=== PATIENT | male | born 1970 | race Caucasian/White ===

== ENCOUNTER 2020-05-17 11:48 | Emergency (ER) | payer OTHER, BC ==
[~2020-05-17] VITALS: Ht 175.3 cm; Wt 81.7 kg
--- OUTSIDE RECORDS SUMMARY | ~2020-05-17 | XMS | Clinical Summary ---
Demographics + + + | Address | [address] | | | [place] [address] | + + + | Home Phone | | + + + | Preferred Language | Unknown | + + + | Marital Status | | + + + | Anglican Affiliation | Unknown | + + + | Race | Unknown | + + + | Ethnic Group | Unknown | + + + Author + + + | Author | [facility] | | | and Abdulazizana | + + + | Organization | [facility] | | | and Abdulazizana | + + + | Address | Unknown | + + + | Phone | Unavailable | + + + Support + + +---------+ + | Name | Relationship | Address | Phone | + + +---------+ + | Monika Lewis | ECON | Unknown | | + + +---------+ + Care Team Providers + +------+ + | Care Luncheonette Operator Name | Role | Phone | + +------+ + PCP | Unavailable | + +------+ + Allergies Not on File Medications Not on file Active Problems Not on file Social History + +-------+ +--------+------+ | Tobacco Use | Types | Packs/Day | Years | Date | | | | | Used | | + +-------+ +--------+------+ | Never Assessed | | | | | + +-------+ +--------+------+ + + + | Sex Assigned at | Date Recorded | | | | + + + | Not on file | | + + + Last Filed Vital Signs Not on file Plan of Treatment + + +-------+ + | Health Maintenance | Due Date | Last | Comments | | | | Done | | + + +-------+ + | Vaccine: | | | | | Dtap/Tdap/Td (1 - | 9 | | | | Tdap) | | | | + + +-------+ + | Vaccine: Influenza | | | | | (#1) | 0 | | | + + +-------+ + Results Not on filefrom Last 3 Months"
--- OUTSIDE RECORDS SUMMARY | ~2020-05-17 | XMS | Encounter Summary ---
Demographics + + + | Address | [address] | | | [place] [address] | + + + | Home Phone | | + + + | Preferred Language | Unknown | + + + | Marital Status | | + + + | Advent Affiliation | Unknown | + + + | Race | Unknown | + + + | Ethnic Group | Unknown | + + + Author + + + | Author | [facility] | | | and Abdulazizana | + + + | Organization | [facility] | | | and Abdulazizana | [...] Team Providers + +------+ + | Care Milk Drying Machine Operator Name | Role | Phone | + +------+ + PCP | Unavailable | + +------+ + Encounter Details +--------+ + + + + | Date | Type | Department | Care Team | Description | +--------+ + + + + | 03/10/ | Hospital | [facility] | | | | 1996 | Encounter | MED CTR XRAY [address] | | | | | [place] | | | | | | [place] [id number] | | | | | | [phone] | | | +--------+ + + + + Social History + +-------+ +--------+------+ | Tobacco [...] on file | | + + + documented as of this encounter Plan of Treatment Not on filedocumented as of this encounter Visit Diagnoses Not on filedocumented in this encounter"
[~2020-05-17 11:48] MED LIST: AUGMENTIN 875-1 EACH PO; CETIRIZINE HCL10 MG PO; CYCLOBENZAPRINE10 MG PO; NORCO 5-325 TA1 EACH PO; PSEUDOEPHEDRINE60 MG PO; TESTOSTERO200 MG/1 M IM
[2020-05-17] MEDS ORDERED: OMEPRAZOLE20 M1 PO (13:35)
== END 2020-05-17 13:35 | disposition home or self-care (01) ==
LOC: ED 11:48
DX: S83.91XA Sprain of unspecified site of right knee, initial encounter (principal); X50.1XXA Overexertion from prolonged static or awkward postures, initial encounter
CPT/HCPCS: 73560; 99283-25

== ENCOUNTER 2021-03-12 12:02 | Emergency (ER) | payer OTHER ==
[~2021-03-12] VITALS: Ht 175.3 cm; Wt 81.7 kg
[~2021-03-12 12:02] MED LIST changes: +OMEPRAZOLE20 M1 PO
--- OUTSIDE RECORDS SUMMARY | 2021-03-12 12:06 | XMS ---
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 Jim has no Care Guidelines for this patient. Da VISIT COUNT (12 MO.) 2 HERMELINDA Lee TOTAL 2 NOTE: Visits indicate total known visits. [place] [place]12 [place] 03/12/2021 12:03 HERMELINDA [place] [place] TYPE: Emergency COMPLAINT: - SKIN RASH, FACE SWOLLEN, BODY FEELS HOT 05/17/2020 11:[address] [facility] [place] TYPE: Emergency COMPLAINT: - R KNEE INJURY DIAGNOSES: - Pain in right knee - Sprain of unspecified site of right knee, initial encounter - Overexertion from prolonged static or awkward postures, initial encounter INPATIENT VISIT TRACKING (12 MO.) No inpatient visits to display in this time frame [email or web address]
[2021-03-12] MEDS ORDERED: PREDNISONE20 MG PO (12:46)
== END 2021-03-12 13:05 | disposition home or self-care (01) ==
LOC: ED 12:02
DX: L25.9 Unspecified contact dermatitis, unspecified cause (principal); Z79.899 Other long term (current) drug therapy
CPT/HCPCS: 99282

== ENCOUNTER 2021-12-18 11:23 | Emergency (ER) | payer OTHER ==
[~2021-12-18] VITALS: Ht 175.3 cm; Wt 81.7 kg
[~2021-12-18 11:23] MED LIST changes: +PREDNISONE20 MG PO
--- OUTSIDE RECORDS SUMMARY | 2021-12-18 11:26 | XMS ---
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 Jim has no Care Guidelines for this patient. Da VISIT COUNT (12 MO.) [address] [facility] Y[place] 2 HERMELINDA Lee TOTAL 3 NOTE: Visits indicate total known visits. [place] [place] (12 MO.) 12/18/2021 11:24 HERMELINDA Tavarez [place] TYPE: Emergency COMPLAINT: - HEAD INJURY 04/14/2021 20:09 [facility] TYPE: Emergency DIAGNOSES: - Near Syncope - Fatigue - light headed - Syncope and collapse - Dizziness and giddiness 03/12/2021 12:03 HERMELINDA [facility] TYPE: Emergency COMPLAINT: - SKIN RASH, FACE SWOLLEN, BODY FEELS HOT DIAGNOSES: - Other senior living (current) drug therapy - Rash and other nonspecific skin eruption - Unspecified contact dermatitis, unspecified cause INPATIENT VISIT TRACKING (12 MO.) No inpatient visits to display in this time frame [email or web address]
== END 2021-12-18 13:14 | disposition home or self-care (01) ==
LOC: ED 11:23
DX: S06.0X9A Concussion with loss of consciousness of unspecified duration, initial encounter (principal); W22.8XXA Striking against or struck by other objects, initial encounter; Z79.52 Long term (current) use of systemic steroids; Z79.899 Other long term (current) drug therapy
CPT/HCPCS: 70450; 99283-25

== ENCOUNTER 2023-07-24 08:45 | Day surgery (SDC) | payer OTHER ==
[~2023-07-24] VITALS: Ht 177.8 cm; Wt 89.4 kg
[~2023-07-24 08:45] MED LIST changes: +ALEVE220 MG PO; +BENADRYL25 MG PO; +PROTONIX40 MG PO; +SILDENAFIL20 MG PO; +VITAMIN D325 MCG PO
[2023-07-24 09:03] VITALS: BP 132/90
--- NOTE | 2023-07-24 10:47 | NUR ---
07/24/23 Deshawn7 Dorothea Gomez 1038 PT TO PACU ALERT AND AWAKE DENIES PAIN AND NAUSEA.
[2023-07-24 11:15] VITALS: BP 121/85
--- NOTE | 2023-07-25 06:57 | OR ---
[facility] [address] [place], [place] [address] Signed DATE OF OPERATION: 07/24/2023 SURGEON: El Vallejo MD PREOPERATIVE DIAGNOSES: 1. Gastroesophageal reflux disease. 2. Chews snuff on a daily basis. 3. Aleve p.o. b.i.d. 4. Screening colonoscopy. POSTOPERATIVE DIAGNOSES: 1. Mild diffuse punctate hemorrhagic gastritis. 2. Hot biopsy of ileocecal valve. 3. Moderate left-sided diverticulosis. 4. 6 mm polyp at 5 cm in rectum (snare). PROCEDURES: 1. EGD with CLOtest and biopsies of the antrum. 2. Colonoscopy with snare polypectomy and hot biopsy. ESTIMATED BLOOD LOSS: None. INDICATIONS: So is a 53-year-old gentleman, asked to see me for both upper and lower endoscopy. He feels like his acid reflux was getting worse. He said Prilosec did not seem to help. However, the Protonix seems to be much better. He said once the Protonix kicked in the hiccups went away. He still chews snuff on a daily basis. He also uses Aleve once or twice a day for his shoulder injury. He said he has never had an upper endoscopy. In addition, he has never had a screening colonoscopy. He has no lower GI complaints. There is no family history of colon cancer or polyps. In the office, I gave him pamphlets on both upper and lower endoscopy. We looked at those together. He understands the nature of the test. There is risk including, but not limited to gas bloating, crampy abdominal pain, bleeding, perforation requiring surgery, and missed diagnosis. We also reviewed the written instructions for the bowel prep line by line. He also understands the need for IV conscious sedation. He had expressed understanding and wished to proceed. DESCRIPTION OF PROCEDURE: So was taken into our endoscopy suite and placed in the supine semi-recumbent Electronically Signed By: EL VALLEJO MD 07/25/23 0657 PATIENT NAME: SO CELIS OPERATIVE REPORT DATE OF : 70 REPORT #: [id number] PHYSICIAN: EL VALLEJO MD PCP: TERRY INTERIANO PAC REPORT IS CONFIDENTIAL AND NOT TO BE RELEASED WITHOUT AUTHORIZATION [facility] [address] [place], [place] [address] Signed position. The posterior oropharynx was anesthetized with lidocaine spray. A bite block was utilized for the case. He was given a total of 8 mg of Versed and 150 mcg of fentanyl to cover both cases. The adult gastroscope was introduced and advanced out into the third portion of the duodenum without difficulty. The duodenum and pyloric channel were unremarkable. In the stomach, he had some very mild diffuse punctate hemorrhagic gastritis. There were no ulcerations. We took a biopsy of the antrum for CLOtest as well as pathologic review. Upon retroflexion of the scope, really cannot appreciate an obvious hiatal hernia. The scope was withdrawn up through the area of the GE junction, which was compliant without stricture. There were no gastric or esophageal varices. Very little irritation around the Z-line. There was no Farmer's mucosa. No distal esophagitis. The upper and middle esophagus were unremarkable. After this, the gas was suctioned out the gastroscope removed. So tolerated his upper endoscopy quite well. So was rotated into the left lateral decubitus position. He was maintained on IV sedation with Versed and fentanyl. A digital rectal exam was performed. There were no external hemorrhoids. He had good sphincter tone. There were no masses. The adult colonoscope had been introduced and advanced under direct visualization of the camera up into the cecum itself. He had a good prep. We could easily see the appendiceal orifice and the ileocecal valve. On the corner of the ileocecal valve, there was a little bit of a bump and we decided to go ahead and biopsied and destroyed completely with the help of hot biopsy forceps. Almost routinely these proved to be unremarkable. The scope was then slowly withdrawn. We had taken several pictures throughout for photodocumentation. He does have left-sided diverticula. They are moderate in size, few in number and scattered about. In the rectum, he had just a small 6 mm polyp just above the anal canal. We divided it with the help of snare and suctioned through our scope and caught it in the canister. We can see this area on retroflexion of the scope along with some very minimal internal hemorrhoid columns. After this, the gas was suctioned out and the colonoscope removed. So tolerated procedure quite well. RECOMMENDATIONS: I will see So back in my office in 7 to 14 days to review his results. He also told me his father of a brain aneurysm. He might review that with his primary care provider for screening of his abdominal aorta. El Vallejo MD ALB/MODL Electronically Signed By: EL VALLEJO MD 07/25/23 0657 PATIENT NAME: SO CELIS OPERATIVE REPORT DATE OF : 70 REPORT #: [id number] PHYSICIAN: EL VALLEJO MD PCP: TERRY INTERIANO PAC REPORT IS CONFIDENTIAL AND NOT TO BE RELEASED WITHOUT AUTHORIZATION [facility] [address] [place] [address] E[place] [address] Signed /[id number] cc: MD Dr. Namrata Redding Copies: EL VALLEJO MD ~ Electronically Signed By: EL VALLEJO MD 07/25/23 0657 PATIENT NAME: SO CELIS OPERATIVE REPORT DATE OF : 70 REPORT #: [id number] PHYSICIAN: EL VALLEJO MD PCP: TERRY INTERIANO PAC REPORT IS CONFIDENTIAL AND NOT TO BE RELEASED WITHOUT AUTHORIZATION
--- NOTE | 2023-07-29 11:04 | PATH ---
[facility] [address] [place], [place] [address] Signed SPECIMEN(S): A ANTRUM/PYLORUS BIOPSY SPECIMEN(S): B RECTAL POLYP AT 5 CM SPECIMEN(S): C ILEOCECAL VALVE BIOPSY SPECIMEN SOURCE: A. ANTRUM/PYLORUS BIOPSY B. RECTAL POLYP AT 5 CM C. ILEOCECAL VALVE BIOPSY CLINICAL HISTORY: Reflux. Screening. History of mild gastritis, colon polyp. FINAL PATHOLOGIC DIAGNOSIS: A. Antrum/pylorus, biopsies: - Mild chronic gastritis, negative for active inflammation. - No H. pylori bacteria are detected by HE stain. B. Rectal polyp at 5 cm, biopsy: - Tubular adenoma. C. Ileocecal valve, biopsies: - Fragments of cauterized ileocecal mucosa without diagnostic abnormality. - Negative for active inflammation, granulomas or dysplasia. AMB MICROSCOPIC EXAMINATION: Histologic sections of all submitted blocks are examined by light microscopy. These findings, together with the gross examination, support the pathologic diagnosis. GROSS DESCRIPTION: A. The specimen, labeled and designated "[place], antrum/pylorus biopsy," is received in formalin and consists of one gallegos soft tissue fragment, 0.7 cm. Entirely submitted in (A1). B. The specimen, labeled and designated "[place], rectal polyp at 5 cm," is received in formalin and consists of one gallegos soft tissue fragment, 0.5 cm. Entirely submitted in (B1). C. The specimen, labeled and designated "[place], ileocecal valve biopsy," is received in formalin and consists of two gallegos soft tissue fragments, ranging from 0.2-0.3 cm. Entirely submitted in (C1). VB (under the direct supervision of a pathologist) The Gross Description was prepared using a voice recognition system. The report was reviewed for accuracy; however, sound-alike word errors, addition and/or PATIENT NAME: SO CELIS PATHOLOGY DATE OF : 70 REPORT #: [id number] PHYSICIAN: TOMY MENDES PCP: TERRY INTERIANO PAC REPORT IS CONFIDENTIAL AND NOT TO BE RELEASED WITHOUT AUTHORIZATION [facility] [address] [place], [place] [address] Signed deletions may occur. If there is any question about this report, please contact Client Services. ADDITIONAL NOTES: Immunohistochemical and/or in situ hybridization studies if performed in this case included appropriate positive controls that reacted as expected. This test was developed and its performance characteristics determined by [facility]. It has not been cleared or approved by the U.S. Food and Drug Administration. The FDA has determined that such clearance or approval is not necessary. This test is used for clinical purposes. It should not be regarded as investigational or for research. [facility] is certified under the Clinical Laboratory Improvement Amendments of 1988 (CLIA) as qualified to perform high complexity clinical laboratory testing. PERFORMING LABORATORY: Technical component was performed by [facility], [address] [place] [address] (CLIA# [id number]). Professional interpretation was performed by [facility] [employer] Pathology - [facility] [address] [place] [id number] Diagnostician: Carolina Maldonado MD Pathologist Electronically Signed 07/29/2023 Copies: ~ PATIENT NAME: SO CELIS PATHOLOGY DATE OF : 70 REPORT #: [id number] PHYSICIAN: TOMY PATHOLOGY PCP: TERRY INTERIANO PAC REPORT IS CONFIDENTIAL AND NOT TO BE RELEASED WITHOUT AUTHORIZATION
== END 2023-07-24 11:25 | disposition home or self-care (01) ==
LOC: OPS 08:45 → DS 08:45 → OPS 10:30
PROVIDERS: ATTEND Colon & Rectal Surgery
PROC: 0DBP8ZX Excision of Rectum, Via Natural or Artificial Opening Endoscopic, Diagnostic (ICD-10-PCS; 2023-07-24)
PROC: 0DB68ZX Excision of Stomach, Via Natural or Artificial Opening Endoscopic, Diagnostic (ICD-10-PCS; principal; 2023-07-24 10:30)
PROC: 0DBC8ZX Excision of Ileocecal Valve, Via Natural or Artificial Opening Endoscopic, Diagnostic (ICD-10-PCS; 2023-07-24 10:30)
DX: Z12.11 Encounter for screening for malignant neoplasm of colon (principal); D12.8 Benign neoplasm of rectum; K57.30 Diverticulosis of large intestine without perforation or abscess without bleeding; K64.8 Other hemorrhoids; K29.51 Unspecified chronic gastritis with bleeding; K21.9 Gastro-esophageal reflux disease without esophagitis; F17.220 Nicotine dependence, chewing tobacco, uncomplicated; R53.83 Other fatigue; R03.0 Elevated blood-pressure reading, without diagnosis of hypertension; Z88.8 Allergy status to other drugs, medicaments and biological substances; Z79.899 Other long term (current) drug therapy
CPT/HCPCS: 36415; 87077; 99153; G0500; J2250; J3010; J7121